=== PATIENT | male | born 1985 | race Caucasian/White ===

== ENCOUNTER 2019-07-03 01:05 | Emergency (ER) | payer SELFPAY ==
[~2019-07-03] VITALS: Ht 177.8 cm; Wt 63.5 kg
[2019-07-03 01:06] VITALS: BP_SYST 153
--- NOTE | 2019-07-03 01:06 | NUR ---
Patient to ER bed 02 to gown for evaluation. Side rails up. Report given to JOSEP CHASE
--- NOTE | 2019-07-03 01:15 | NUR ---
Pt. presents to the ED from home and is ambulatory and is A&O x4. He has c/o of right flank and abdominal pain that radiates to the right testicle. He is afebrile and tianna vomiting, but has been experiencing nausea. Pain is 10/10 and began approx 30 minutes before arrival. VSS. Skin is warm, dry, and intact, cap refill <3 seconds.
--- NOTE | 2019-07-03 01:20 | NUR ---
20G Left AC IV placed. Meds given as ordered.
--- NOTE | 2019-07-03 01:38 | NUR ---
ER at bedside examining patient.
[2019-07-03] MEDS ORDERED: KETOROLAC TROMETHAMINE 30 MG VIAL IVP ONE (01:45)
[2019-07-03] MEDS ORDERED: NACL 0.9% 1,000 ML IV ONE (01:45)
[2019-07-03] MEDS ORDERED: ONDANSETRON HCL 4 MG/2 ML VIAL IVP ONE (01:45)
[2019-07-03 01:47] LABS: BILIRUBIN,URINE NEGATIVE (NEGATIVE); BLOOD, URINE 3+ (NEGATIVE); CLARITY/URINE CLEAR (CLEAR); COLOR,URINE YELLOW (YELLOW); GLUCOSE,URINE NEGATIVE (NEGATIVE); KETONES,URINE NEGATIVE (NEGATIVE); LEUKOCYTE ESTERASE ,URINE NEGATIVE (NEGATIVE); NITRITE, URINE NEGATIVE (NEGATIVE); PH,URINE 5.5 (5.0-8.0); PROTEIN URINE NEGATIVE (NEGATIVE); UROBILINOGEN,URINE 0.2 (0.2-1.0)
[2019-07-03 01:51] LABS: BASOPHILS # (AUTO) 0.1 K/uL (0.0-0.2); EOSINOPHILS # (AUTO) 0.5 K/uL (0.0-0.4); LYMPHOCYTES # (AUTO) 3.4 K/uL (1.0-5.5); MONOCYTES # (AUTO) 0.7 K/uL (0.0-1.0); RED CELL DISTRIBUTION WIDTH 13.5 % (9.0-15.0)
[2019-07-03 01:52] LABS: BACTERIA,URINE FEW /HPF (None Seen); RBC,URINE >100 /HPF (0-3); WBC,URINE 0-3 /HPF (0-3)
[2019-07-03 01:56] LABS: EOSINOPHILS % (AUTO) 4.4 % (0.0-4.0); HEMATOCRIT 40.4 % (36-54); HEMOGLOBIN 13.3 g/dL (14.0-18.0); MEAN CORPUSCULAR HEMOGLOBIN 31 pg (27-31); MEAN CORPUSCULAR HGB CONC 33 % (32-36); MEAN CORPUSCULAR VOLUME 94 fL (79.0-98.0); MONOCYTES % (AUTO) 6.1 % (1.7-9.3); NEUTROPHILS # (AUTO) 7.3 K/uL (1.8-7.7); NEUTROPHILS % (AUTO) 60.5 % (40.0-70.0); PLATELET COUNT (AUTO) 346 K/uL (130-430); RED BLOOD CELL COUNT(AUTO) 4.31 MIL/uL (4.2-6.2); WHITE BLOOD COUNT (AUTO) 12.1 K/uL (4.8-10.8)
--- NOTE | 2019-07-03 02:00 | NUR ---
Pt. taken off unit to radiology via gurarlette accompanied by tool radial drill press set up operator.
[2019-07-03 02:01] LABS: CALCIUM 8.5 mg/dL (8.4-11.0); CREATININE 0.92 mg/dL (0.55-1.30); POTASSIUM 3.3 mmol/L (3.5-5.1)
[2019-07-03 02:06] LABS: ALBUMIN 4.1 g/dL (3.4-4.8); TOTAL BILIRUBIN 0.4 mg/dL (0.0-1.0)
--- NOTE | 2019-07-03 02:15 | NUR ---
Pt. back on unit from radiology.
--- NOTE | 2019-07-03 02:32 | NUR ---
Pt. resting comfortably in bed and denies any pain or nausea at this time.
[2019-07-03] MEDS ORDERED: HYDROcodone/ACETAMIN 5-325 MG TAB (NORCO/ VICODIN) PO ONE (03:00)
[2019-07-03 03:10] VITALS: BP_SYST 118
--- NOTE | 2019-07-03 03:10 | NUR ---
Patient given written and verbal discharge instructions and verbalizes understanding. ER MD discussed with patient the results and treatment provided. Patient in stable condition. ID arm band removed. IV catheter removed intact and dressing applied, no active bleeding. Rx of Motrin and Tylenol with Codeine given. Patient educated on pain management and to follow up with PMD. Pain Scale 2/10. Opportunity for questions provided and answered. Medication side effect fact sheet provided.
== END 2019-07-03 03:10 | disposition home or self-care (01) ==
LOC: SED 01:05
DX: N20.0 Calculus of kidney (principal); N36.8 Other specified disorders of urethra
CPT/HCPCS: 36415; 74176; 80053; 81000; 83690; 85025; 96374; 96375; 99284; J1885; J2405; J7030